=== PATIENT | male | born 1985 | race Caucasian/White ===

== ENCOUNTER 2020-03-23 07:32 | Outpatient (CLI) | payer BC, OTHER ==
[2020-03-23 11:37] LABS: #Basophils 0.1 thou/uL (0.0-0.2); #Eosinphils 0.1 thou/uL (0.0-0.7); #Lymphocytes 2.1 thou/uL (1.20-3.40); #Monocytes 0.6 thou/uL (0.11-0.59); #Neutrophils 4.3 thou/uL (1.40-6.50); %Eosinophils 1.6 % (0.0-10.0); %Lymphocytes 29.7 % (21.0-51.0); %Monocytes 7.9 % (0.0-10.0); %Neutrophils 59.8 % (42.0-75.0); Hemoglobin 16.7 g/dL (14.0-18.0); Mean Corpuscular HGB CONC 32.1 g/dL (32.0-36.0); Mean Corpuscular Hemoglobin 28.1 pg (27.0-31.0); Mean Corpuscular Volume 87.6 fL (78.0-98.0); Mean Platelet Volume 9.1 fL (7.4-10.4); Platelet Count 263 thou/uL (130-400); RBC Distribution Width 11.9 % (11.5-14.5); Red Blood Cell (RBC) Count 5.94 mill/uL (4.70-6.10); White Blood Cell (WBC) Count 7.2 thou/uL (4.8-10.8)
[2020-03-23 11:55] LABS: Anion Gap 12 mmol/L (10-20); BUN (Urea Nitrogen) 11 mg/dL (8.9-20.6); Calc. Creatinine Clearance 0 mL/min (70-130); Calcium 9.7 mg/dL (7.8-10.44); Carbon Dioxide 27 mmol/L (22-29); Chloride 105 mmol/L (98-107); Estimated GFR-MDRD 78; Glucose 103 mg/dL (70-105); Potassium 4.6 mmol/L (3.5-5.1); Sodium 139 mmol/L (136-145)
[2020-03-23 17:53] LABS: SARS-CoV-2 MS2 Positive; SARS-CoV-2 N Gene Negative; SARS-CoV-2 S Gene Negative; SARS-CoV-2 by NAA Not Detected (NotDetected); SARS-CoV-2 orf1ab Negative
== END 2020-03-23 07:33 | disposition home or self-care (01) ==
LOC: LABBT 07:32
PROVIDERS: ATTEND Surgery
DX: Z01.812 Encounter for preprocedural laboratory examination (principal); K60.3 Anal fistula; Z20.828 Contact with and (suspected) exposure to other viral communicable diseases
CPT/HCPCS: 80048; 85025; 87635; U0003

== ENCOUNTER 2020-03-28 07:06 | Day surgery (SDC) | payer BC ==
[2020-03-23 13:59] VITALS: BMI 30.5
[2020-03-28] MEDS ORDERED: Sodium Chloride 0.9% 10 ML ONE (08:35)
[2020-03-28] MEDS ORDERED: Famotidine/PF 20 mg/2ml Vial ONE (08:35)
[2020-03-28] MEDS ORDERED: Midazolam HCl 2 mg/2 ml Vial ONE ×2 (08:35→09:58)
[2020-03-28] MEDS ORDERED: Lidocaine 2% Jelly 5 ML TUBE ONE (09:54)
[2020-03-28] MEDS ORDERED: Bupivacaine 0.25% HCL 30 ML VIAL ONE (09:54)
[2020-03-28] MEDS ORDERED: Fentanyl 100 MCG/2 ML VIAL ONE (09:58)
[2020-03-28] MEDS ORDERED: Ketorolac Tromethamine 30 MG/ML VIAL ONE (10:03)
[2020-03-28] MEDS ORDERED: Dexamethasone 20 MG/5 ML VIAL ONE (10:03)
[2020-03-28] MEDS ORDERED: Ondansetron PF 4 MG/2 ML Vial ONE (10:03)
[2020-03-28] MEDS ORDERED: PROPOFOL 200 MG/20 ML VIAL ONE (10:03)
[2020-03-28] MEDS ORDERED: Lidocaine 1% PF 5 ML VIAL ONE (10:03)
[2020-03-28] MEDS ORDERED: Levofloxacin 500 mg/D5W 100 ml Premix Bag ONE (10:16)
[2020-03-28] MEDS ORDERED: HYDROcodone/Acetaminophen 5/325 mg Tablet ONE (12:03)
--- NOTE | 2020-03-29 13:22 | OP ---
DATE OF PROCEDURE: 03/28/2020 PREOPERATIVE DIAGNOSIS: [id number]. POSTOPERATIVE DIAGNOSIS: [id number]. PROCEDURE: Anal fistulotomy with seton placement. ANESTHESIA: General. ESTIMATED BLOOD LOSS: Minimal. COMPLICATIONS: None. SPECIMEN: None. FINDINGS: Transsphincteric fistula. TECHNIQUE: The patient was taken to the operating room and laid supine on the operating room table. After general anesthetic was obtained, he was placed in lithotomy position. His perineal area shaved, prepped, and draped in a sterile fashion. The patient has external fistula opening. Fistula probe was used to communicate this up inside the anus. There was no anal canal mass or obvious malignancy. This was a transsphincteric fistula. Between the outside hole and the sphincter muscles, on top of the fistula probe was cut open. The underlying wound bed was cauterized. The last bit of the fistula around the sphincter muscle, a heavy silk suture was passed and tied in a loop as a seton. The wounds were irrigated. The patient was sent to Recovery in stable condition. All instrument counts, needle counts, and lap counts were correct. Job ID: [id number]
--- NOTE | 2020-04-05 13:23 | EKG ---
Test Reason : PREOP Blood Pressure : / mmHG Vent. Rate : 078 BPM Atrial Rate : 078 BPM P-R Int : 172 ms QRS Dur : 102 ms QT Int : 378 ms P-R-T Axes : 038 031 018 degrees QTc Int : 430 ms Normal sinus rhythm Normal ECG No previous ECGs available Confirmed by FLAQUITA READ, DR. Rodas ([id number]) on 04/05/2020 1:22:35 PM Referred By: RAYRAY Confirmed By:DR. Adrianna SAMS MD
--- NOTE | 2020-05-03 05:44 | OP ---
DATE OF PROCEDURE: 03/28/2020 ADDENDUM: Prior to fistulotomy with seton, a 1 cm skin cyst was excised in the right upper inner thigh. It was sent to Path for final diagnosis. The wound was irrigated. Local anesthetic was applied. The wound was closed using 3-0 Vicryl, 4-0 Monocryl, and Dermabond. Job ID: [id number]
== END 2020-03-28 12:45 | disposition home or self-care (01) ==
LOC: SDC 07:06
PROVIDERS: ATTEND Surgery
PROC: 0HBHXZZ Excision of Right Upper Leg Skin, External Approach (ICD-10-PCS; principal; 2020-03-28)
PROC: 0DQQ3ZZ Repair Anus, Percutaneous Approach (ICD-10-PCS; principal; 2020-03-28)
DX: K60.3 Anal fistula (principal); L72.9 Follicular cyst of the skin and subcutaneous tissue, unspecified; K21.9 Gastro-esophageal reflux disease without esophagitis; F17.200 Nicotine dependence, unspecified, uncomplicated; Z79.899 Other long term (current) drug therapy; Z88.1 Allergy status to other antibiotic agents; Z88.8 Allergy status to other drugs, medicaments and biological substances
CPT/HCPCS: 88304; 93005; 93010; J1100; J1885; J1956; J2250; J2405; J2704; J3010; S0020; S0028

== ENCOUNTER 2020-09-22 09:54 | Day surgery (SDC) | payer BC ==
[2020-09-21 09:18] VITALS: BMI 28.5
[2020-09-22] MEDS ORDERED: Ondansetron PF 4 MG/2 ML Vial ONE (10:37)
[2020-09-22] MEDS ORDERED: Dexamethasone 20 MG/5 ML VIAL ONE (10:37)
[2020-09-22] MEDS ORDERED: PROPOFOL 200 MG/20 ML VIAL ONE (10:37)
[2020-09-22] MEDS ORDERED: Ketorolac Tromethamine 30 MG/ML VIAL ONE (10:37)
[2020-09-22] MEDS ORDERED: Lidocaine 1% PF 5 ML VIAL ONE (10:37)
[2020-09-22] MEDS ORDERED: Lidocaine 2% Jelly 5 ML TUBE ONE (11:00)
[2020-09-22] MEDS ORDERED: Bupivacaine PF 0.5% 30 ML VIAL ONE (11:06)
[2020-09-22] MEDS ORDERED: Fentanyl 100 MCG/2 ML VIAL ONE ×2 (11:43→13:23)
[2020-09-22] MEDS ORDERED: Midazolam HCl 2 mg/2 ml Vial ONE (11:43)
[2020-09-22] MEDS ORDERED: HYDROcodone/Acetaminophen 5/325 mg Tablet ONE (14:30)
== END 2020-09-22 15:24 | disposition home or self-care (01) ==
LOC: SDC 09:54
PROVIDERS: ATTEND Surgery
PROC: 0H88XZZ Division of Buttock Skin, External Approach (ICD-10-PCS; principal; 2020-09-22)
DX: K60.3 Anal fistula (principal); K21.9 Gastro-esophageal reflux disease without esophagitis; F17.210 Nicotine dependence, cigarettes, uncomplicated; F32.9 Major depressive disorder, single episode, unspecified; Z79.899 Other long term (current) drug therapy; Z88.1 Allergy status to other antibiotic agents; Z98.890 Other specified postprocedural states
CPT/HCPCS: J1100; J1885; J2250; J2405; J2704; J3010; S0020

== ENCOUNTER 2023-08-26 16:00 | Outpatient (CLI) | payer BC | END 2023-08-26 16:01 | disposition home or self-care (01) | LOC: SLEEPLAB 16:00 | PROVIDERS: ATTEND Family Medicine | DX: G47.33 Obstructive sleep apnea (adult) (pediatric) (principal); R06.83 Snoring; R53.83 Other fatigue | CPT/HCPCS: 95800 ==